=== PATIENT | male | born 1945 | race Caucasian/White ===

== ENCOUNTER 2017-08-12 10:14 | Day surgery (SDC) | payer MEDICARE ==
[2017-08-11 08:54] VITALS: BMI 33.6
[~2017-08-12 10:14] MED LIST: PROPOFOL 200 MG/20 ML VIAL ONE
[2017-08-12] MEDS ORDERED: PROPOFOL 40 ML ONE (10:39)
--- NOTE | 2017-08-23 13:04 | EKG ---
Test Reason : POST CARDIOVERS#1 Blood Pressure : / mmHG Vent. Rate : 077 BPM Atrial Rate : 078 BPM P-R Int : 000 ms QRS Dur : 102 ms QT Int : 434 ms P-R-T Axes : 000 005 005 degrees QTc Int : 491 ms Sinus rhythm with long first degree AV block Low voltage QRS Nonspecific T wave abnormality Prolonged QT Abnormal ECG No previous ECGs available Confirmed by DR. Saravanan TRIMBLE ([id number]) on 08/23/2017 1:04:28 PM Referred By: LUZ MARIA Confirmed By:DR. Saravanan TRIMBLE
--- NOTE | 2017-08-23 13:05 | EKG ---
Test Reason : CARDIOVERSION # 2 Blood Pressure : / mmHG Vent. Rate : 071 BPM Atrial Rate : 071 BPM P-R Int : 000 ms QRS Dur : 100 ms QT Int : 480 ms P-R-T Axes : 079 -22 000 degrees QTc Int : 521 ms Sinus rhythm with 1st degree A-V block Low voltage QRS Nonspecific T wave abnormality Prolonged QT Abnormal ECG Nonspecific T wave abnormality, improved in Anterior leads Confirmed by DR. Saravanan TRIMBLE ([id number]) on 08/23/2017 1:04:46 PM Referred By: LUZ MARIA Confirmed By:DR. Saravanan TRIMBLE
== END 2017-08-12 12:25 | disposition home or self-care (01) ==
LOC: CCL 10:14
PROVIDERS: ATTEND Internal Medicine Cardiovascular Disease
DX: I48.1 Persistent atrial fibrillation (principal); E11.9 Type 2 diabetes mellitus without complications; I10 Essential (primary) hypertension; E78.00 Pure hypercholesterolemia, unspecified; Z79.899 Other long term (current) drug therapy; Z79.84 Long term (current) use of oral hypoglycemic drugs; Z53.9 Procedure and treatment not carried out, unspecified reason
CPT/HCPCS: 92960; 93005; 93010; 93312; J2704

== ENCOUNTER 2018-09-20 13:22 | Outpatient (CLI) | payer MEDICARE ==
--- NOTE | 2018-09-20 14:54 | CT ---
CT ANGIOGRAM THORAX AND ABDOMEN WITH IV CONTRAST AND 3-D RECONSTRUCTIONS CLINICAL INDICATION: Thoracic aortic aneurysm noted on echocardiogram. COMPARISON: None FINDINGS: Pulmonary arteries: No filling defects are seen in the pulmonary arteries to suggest a pulmonary embo jordan. Aorta and arteries: The ascending thoracic aorta is ectatic measuring 4 cm in diameter. The descendin g thoracic aorta is normal in caliber measuring 3 cm in diameter. There is mild focal aneurysmal dilatation of the infrarenal abdominal aorta just above the level of the aortic bifurcation which clementina sures 3.1 cm in AP dimensions. There is mild aneurysmal dilatation of the common iliac arteries bilaterally with left common iliac artery measuring 2.2 cm and the right measuring 2 cm. There is no evidence of an aortic dissection. Vascular calcifications are seen in the thoracic and abdominal aorta as well as involving the coronary arteries. Dense vascular calcification is also seen involving visualized iliac arteries. Mild narrowing is seen involving the origin of the celiac artery as well as origin of the SMA due to vascular calcifications. Origin of the SARAVANAN is not well seen. Single patent bilateral renal arteries are visualized. Lungs: Emphysematous changes are seen throughout the lungs bilaterally much greater in the upper lobe s. Mediastinum: There are mitral valve calcifications. There is no evidence of lymphadenopathy. Thyroid gland: Small in size but grossly within normal limits where visualized. Osseous structures: Mild degenerative changes are seen in the spine. There is a mild wedge-shaped com pression fracture of the T8 vertebral body of indeterminate age. Chest wall: Mild gynecomastia is noted. Upper abdomen: There is mild peripheral nodular contour the liver which is nonspecific but can be see n in patients with cirrhosis. A 1.7 cm hypodense lesion is seen in the right hepatic lobe which cannot be characterized as a cyst on this examination. The spleen, pancreas, bilateral adrenal glands, and kidneys demonstrate a normal CT appearance for ar terial phase of imaging. There is colonic diverticulosis. IMPRESSION: 1. Nodular peripheral contour of the liver which can be seen with cirrhosis. In addition, there is a hypodense lesion in the right hepatic lobe, and further evaluation with CT abdomen following hepatic mass protocol is recommended with and without IV contrast. 2. Ectasia of the ascending thoracic aorta without aneurysmal dilatation or dissection. 3. Focal infrarenal abdominal aortic aneurysm just above the level of the aortic arch with mild aneur ysmal dilatation of the common iliac arteries bilaterally. 4. COPD. 5. Colonic diverticulosis. 6. Age-indeterminate mild compression fracture T8 vertebral body.
--- NOTE | 2018-09-21 08:23 | CT ---
CT ANGIOGRAM CHEST WITH CONTRAST CT ANGIOGRAM ABDOMEN WITH CONTRAST 09/20/18 HISTORY: Abdominal aortic aneurysm. COMPARISON: None. FINDINGS: CT angiogram chest performed after the intravenous administration of contrast. 3D rendering provided. There is some reflux of contrast within a suprahepatic IVC and hepatic veins suggesting some diastoli c dysfunction. Mild atherosclerotic plaque of the great vessels and of the aorta. No aneurysmal dilat ation of the thoracic aorta. Size is as follows: Aortic valve: 2.6 cm. Sinus of Valsalva: 4.1 cm. Sinotubular junction: 3.3 cm. Mid ascending aorta: 3.5 cm. Mid transverse aorta: 3 cm. Proximal descending thoracic aorta: 3 cm. At the diaphragmatic hiatus: 2.5 cm. There is fusiform dilatation of the distal 6 cm abdominal aorta which measures up to 3 cm. There is a lso dilatation of the right common iliac artery which measures up to 1.8 cm and the left common iliac artery measuring up to 2 cm. No penetrating atherosclerotic ulcer. No dissection. Severe emphysema. No pneumothorax. No effusion. No suspicious pulmonary nodule. There are healing right anterior third, fourth, fifth, rib fractures. Healing left anterior third rib fracture. Also remote left anterior fifth rib fracture and sixth rib fracture. Sternum and manubrium appear to be intact. Celiac trunk and superior mesenteric arteries are patent. Proximal pulmonary arteries are without an intraluminal filling defect. The hepatic contour is nodular. There is a hypodensity in hepatic segment VIII incompletely evaluated on this exam. Spleen is unremarkable as well as the pancreas. Adrenal glands unremarkable. The kidne ys have cortical thinning. Extensive diverticular disease throughout the ascending colon. No free intraperitoneal gas or fluid. No acute compression deformity. Chronic compression deformity at T8 and superior end plate Schmorl's node. Circumferential disc bulges at L4-5 and L5-1 with neural foraminal narrowing. IMPRESSION: 1. Fusiform aneurysmal dilatation of the distal abdominal aorta extending to the common iliac ar teries. 2. Healing rib fractures as described. 3. Cardiomegaly. 4. Reflux of contrast in a suprahepatic IVC and hepatic veins suggesting diastolic dysfunction. 5. Nodular contour of the liver suggesting cirrhosis with an incompletely evaluated hypodensity in hepatic segment VIII. Follow-up liver protocol MRI is recommended in 3-6 months. POS: [facility]
== END 2018-09-20 13:23 | disposition home or self-care (01) ==
LOC: BICCT 13:22
PROVIDERS: ATTEND Internal Medicine Cardiovascular Disease
DX: I71.2 Thoracic aortic aneurysm, without rupture (principal); I71.4 Abdominal aortic aneurysm, without rupture; I51.7 Cardiomegaly; S22.43XD Multiple fractures of ribs, bilateral, subsequent encounter for fracture with routine healing
CPT/HCPCS: 71275; 74175; 82565

== ENCOUNTER 2019-06-05 12:51 | Outpatient (CLI) | payer MEDICARE ==
--- NOTE | 2019-06-05 14:51 | MRI ---
MR abdomen with and without IV contrast INDICATION: History of cirrhosis with suspicious liver lesion TECHNIQUE: Multiplanar, multisequence MR images were obtained of the abdomen with and without IV cont rast. Contrast: 20 cc MultiHance. COMPARISON: CTA of the chest and abdomen dated September 20, 2018. FINDINGS: Respiratory motion artifact limits image detail. Liver: There is a T2 hyperintense, T1 hypointense lesion in segment 8 of the right hepatic lobe corre sponding to the hypodensity seen on the prior CTA examination dated September 20, 2018. There is a cirrhotic morphology of the liver. There is mild signal dropout on in and out of phase is consistent with fatty infiltration. The lesion within segment 8 of the right hepatic lobe demonstrates no suspicious arterial or delayed phase enhancement. No suspicious arterial enhancing lesion is identifi ed. Gallbladder: Normal. Pancreas: There is a 7 mm bilobed cystic abnormality within the pancreatic tail on image 28 of series 7. This does not appear to indicate within the inferior duct and demonstrates no appreciable enhancement. Adrenal glands: Normal. Kidneys: No focal renal lesion or hydronephrosis Spleen: Mildly enlarged measuring 13.2 cm in length. Lymphadenopathy or free fluid: None Vasculature: There is mild ectasia of the infrarenal abdominal aorta measuring up to 2.8 cm. Bowel: Visualized bowel appears within normal limits. Osseous structures: No signal abnormality evident. IMPRESSION: 1. Cirrhotic morphology of the liver with mild splenomegaly suggesting underlying portal hypertension . Mild fatty liver. 2. Focal lesion within segment 8 of the right hepatic lobe is consistent with a simple cyst. LI-RADS Category 1: Benign 3. Small bilobed cyst in the pancreatic tail without communication with the main pancreatic duct and abnormal enhancement is suspicious for small cystadenoma or simple cyst. 4. Mild ectasia of the infrarenal abdominal aorta.
== END 2019-06-05 12:52 | disposition home or self-care (01) ==
LOC: BICMRI 12:51
PROVIDERS: ATTEND Internal Medicine
DX: F10.20 Alcohol dependence, uncomplicated (principal); R93.3 Abnormal findings on diagnostic imaging of other parts of digestive tract; K86.2 Cyst of pancreas; K70.0 Alcoholic fatty liver; I77.811 Abdominal aortic ectasia; K76.9 Liver disease, unspecified; K70.30 Alcoholic cirrhosis of liver without ascites; R16.1 Splenomegaly, not elsewhere classified
CPT/HCPCS: 74183; 82565